=== PATIENT | male | born 1970 | race Two or more races ===

== ENCOUNTER 2020-05-06 04:53 | Emergency (ER) | payer OTHER ==
[~2020-05-06] VITALS: Ht 182.9 cm; Wt 72.6 kg
[2020-05-06 04:55] VITALS: BP 127/84
== END 2020-05-06 05:56 | disposition home or self-care (01) ==
LOC: ER 04:55
DX: Z20.828 Contact with and (suspected) exposure to other viral communicable diseases (principal)
CPT/HCPCS: 87426; 99283; C9803